=== PATIENT | male | born 1990 | race Caucasian/White ===

== ENCOUNTER 2017-03-07 22:03 | Emergency (ER) | payer SELFPAY ==
[~2017-03-07] VITALS: Ht 185.4 cm; Wt 88.5 kg
--- NOTE | 2017-03-07 22:39 | PHYS DOC ---
Adult General Chief Complaint Chief Complaint: FINGER INJURY HPI HPI Patient is a 26 year old male who presents emergency Department with complaint of a laceration to his right index finger secondary to a Skil saw. Patient states this happened within the past hour. He denies any additional injuries or concerns at this time. Patient states last tetanus shot was approximately 8 years ago. Review of Systems Review of Systems Constitutional: Denies fever or chills [] Eyes: Denies change in visual acuity, redness, or eye pain [] HENT: Denies nasal congestion or sore throat [] Respiratory: Denies cough or shortness of breath [] Cardiovascular: No additional information not addressed in HPI [] GI: Denies abdominal pain, nausea, vomiting, bloody stools or diarrhea [] : Denies dysuria or hematuria [] Musculoskeletal: Denies back pain or joint pain [] Integument: Denies rash or skin lesions [] Neurologic: Denies headache, focal weakness or sensory changes [] Endocrine: Denies polyuria or polydipsia [] Current Medications Current Medications Current Medications Medications (Trade) Dose Ordered Sig/Juliana Start Time Stop Time Status Last Admin Dose Admin Acetaminophen/ Hydrocodone Bitart (Lortab 5/325) 1 tab 1X ONCE 03/07/17 22:45 03/07/17 22:46 DC 03/07/17 22:53 1 TAB Bupivacaine HCl (Sensorcaine-Mpf 0.25%) 10 ml 1X ONCE 03/07/17 23:00 03/07/17 23:01 DC 03/07/17 22:53 10 ML Diphtheria/ Tetanus/Acell Pertussis (Boostrix) 0.5 ml ONCE ONCE 03/07/17 23:00 03/07/17 23:01 DC 03/07/17 22:56 0.5 ML Allergies Allergies Allergies Coded Allergies Type Severity Reaction Last Updated Verified No Known Drug Allergies 03/07/17 No Physical Exam Physical Exam Constitutional: Well developed, well nourished, mild distress, non-toxic appearance. HENT: Normocephalic, atraumatic, bilateral external ears normal, oropharynx moist, no oral exudates, nose normal. [] Eyes: PERRLA, EOMI, conjunctiva normal, no discharge. [] Neck: Normal range of motion, no tenderness, supple, no stridor. [] Cardiovascular:Heart rate regular rhythm, no murmur [] Lungs & Thorax: Bilateral breath sounds clear to auscultation [] Abdomen: Bowel sounds normal, soft, no tenderness, no masses, no pulsatile masses. [] Skin: Warm, dry, no erythema, no rash. [] Back: No tenderness, no CVA tenderness. [] Extremities: Right index finger with a saw blade with 2.5 cm laceration to the distal pulp of the finger. It does not involve the fingernail. There appears to be a healthy layer of subcutaneous tissue between the soft tissue on the bone. The DIPJ is not involved as well. Neurologic: Alert and oriented X 3, normal motor function, normal sensory function, no focal deficits noted. [] Psychologic: Affect normal, judgement normal, mood normal. [] Current Patient Data Vital Signs Vital Signs Date Time Temp Pulse Resp B/P (MAP) Pulse Ox O2 Delivery O2 Flow Rate FiO2 03/07/17 22:53 20 Room Air 03/07/17 22:43 97.4 73 100 97.4 EKG EKG [] Radiology/Procedures Radiology/Procedures 3 views of right index finger performed with adequate technique. There is a soft tissue deficit physical exam the laceration. There is no evidence of fracture or retained foreign body in the subcutaneous tissue. Procedure Note: 2.5 similar laceration to the tip of the right index finger with approximately 5 mm of tissue defect from the saw blade was anesthetized with 0.25% Marcaine via digital block. Additional Marcaine was used at the distal tip. Laceration was cleansed with Betadine solution and rinsed with copious amounts of saline. Wound was explored for foreign bodies. No foreign bodies were found. There was no exposed bone. The subcutaneous tissue and remaining skin was adequate to form a flap from the tip of the finger proximally. 3, 4-0 nylon stitches were placed with a simple interrupted fashion. Patient tolerated the procedure well. Course & Med Decision Making Course & Med Decision Making Pertinent Labs and Imaging studies reviewed. (See chart for details) [] Dragon Disclaimer Dragon Disclaimer This electronic medical record was generated, in whole or in part, using a voice recognition dictation system. Departure Departure Impression: Primary Impression: Laceration of right index finger Disposition: HOME, SELF-CARE Condition: IMPROVED Patient Instructions: Diphtheria Toxoid; Tetanus Toxoid Adsorbed, DT, Td, Laceration Care, Adult, [id number] Additional Instructions: 1. Stitches will need to be removed in 10 days. Expect your finger to look worse before it looks better. A large area of soft tissue is missing. This will take a while to naturally fill in and heal as well. 2. Take the medication as prescribed. 3. Review the discharge instructions provided for self-care and reasons to return to the emergency department. 4. Follow-up with your primary care doctor's office next week for wound check. Scripts Hydrocodone/Apap 5-325 (NORCO 5-325 TABLET) 1 Each Tablet 1 TAB PO PRN Q6HRS Y for PAIN, #15 TAB 0 Refills Prov: JENNIFER LEE 03/07/17 Cephalexin (CEPHALEXIN) 500 Mg Capsule 1 CAP PO TID, #30 CAP Prov: JENNIFER LEE 03/07/17 JENNIFER LEE March 07, 2017 22:39
[2017-03-07 22:43] VITALS: BP 147/78
[2017-03-07] MEDS ORDERED: HYDROCODONE/APAP 5/325MG TABLET. PO ONE (22:45)
[2017-03-07] MEDS ORDERED: DIPHTH,PERTUSS(ACELL),TET TOX 0.5 ML DISP.SYRIN. VAX IM ONE (23:00)
[2017-03-07] MEDS ORDERED: BUPIVACAINE MPF 0.25% 10 ML VIAL. IJ ONE (23:00)
[2017-03-07] MEDS ORDERED: CEPH500C PO (23:16)
[2017-03-07] MEDS ORDERED: HYDR-971 PO (23:16)
--- NOTE | 2017-03-08 08:27 | RAD ---
Indication laceration. An AP view of the right hand was obtained as well as targeted oblique and lateral imaging to the index finger. Soft tissue injury involving the distal aspect of the index finger is noted. No bony abnormality is seen
== END 2017-03-07 23:45 | disposition home or self-care (01) ==
LOC: ER 22:03
DX: S61.210A Laceration without foreign body of right index finger without damage to nail, initial encounter (principal); W29.8XXA Contact with other powered hand tools and household machinery, initial encounter; Y93.89 Activity, other specified; Y99.8 Other external cause status; Y92.89 Other specified places as the place of occurrence of the external cause
CPT/HCPCS: 12001; 73140; 90471; 90715; 99284; J3490